=== PATIENT | male | born 1965 | race Caucasian/White ===

== ENCOUNTER 2023-02-09 09:09 | Outpatient (CLI) | payer OTHER, SELFPAY | END 2023-02-09 09:10 | disposition home or self-care (01) | LOC: NFLDREF 22:30 | PROVIDERS: PCP Family Medicine; Referring Provider Family Medicine; Visit Provider Emergency Medicine | DX: R53.83 Other fatigue (principal); Z13.1 Encounter for screening for diabetes mellitus; Z12.5 Encounter for screening for malignant neoplasm of prostate; Z13.6 Encounter for screening for cardiovascular disorders | CPT/HCPCS: 80048; 80061; 84153 ==

== ENCOUNTER 2023-03-03 13:21 | Outpatient (CLI) | payer OTHER, SELFPAY | END 2023-03-03 13:22 | disposition home or self-care (01) | LOC: LKVREF 13:22 | PROVIDERS: PCP Family Medicine; Visit Provider Emergency Medicine | DX: I10 Essential (primary) hypertension (principal); E78.5 Hyperlipidemia, unspecified; R53.83 Other fatigue | CPT/HCPCS: 80048 ==

== ENCOUNTER 2023-05-02 21:01 | Emergency (ER) | payer OTHER, SELFPAY ==
[2023-05-02 21:12] VITALS: BP 133/79; PULSE 59; RESP 14; TEMP 36.6; O2SAT 98
--- NOTE | 2023-05-02 21:57 | ED_ITS ---
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 His and daughter viewed the area today and were concerned, he has had no abdominal pain fact he says it does not really hurt at all, there is an abrasion over there. Denies any hematuria any problems with urination any numbness tingling weakness, or any centralized back discomfort at all. He is not on any anticoagulants. Related Data Home Medications Medication Instructions Recorded Confirmed latanoprost 0.005 % eye drops drp ophthalmic (eye) 01/03/23 04/13/23 cholecalciferol (vitamin D3) 250 250 mcg PO QDAY 02/03/23 05/02/23 mcg (10,000 unit) capsule multivitamin (Daily Multi-Vitamin 1 tab PO QAM 02/03/23 04/13/23 tablet) vitamin c gummies PO 02/03/23 04/13/23 Previous Rx's Medication Instructions Recorded fluocinolone 0.01 % topical 1 applic topical BID PRN 02/03/23 solution dermatitis #60 mL ketoconazole 2 % shampoo 1 applic topical 2XW #120 mL 02/03/23 triamcinolone acetonide 0.1 % 1 applic topical BID PRN eczema 02/03/23 topical cream #30 grams lisinopril 10 mg tablet 10 mg PO QDAY #90 tabs 03/03/23 ezetimibe 10 mg tablet (Zetia) 10 mg PO QDAY #90 tabs 03/23/23 clobetasol 0.05 % scalp solution 1 applic topical ONCE #50 mL 04/13/23 clobetasol 0.05 % topical cream 1 applic topical BID #30 grams 04/13/23 doxycycline monohydrate 100 mg 100 mg PO BID #60 tabs 04/13/23 tablet ketoconazole 2 % shampoo 1 applic topical 2XW #120 mL 04/13/23 Allergies Allergy/AdvReac Type Severity Reaction Status Date / Time [id number]-MxC Reductase Allergy Intermediate Myalgia Verified 05/02/23 21:16 Inhibitor Review of Systems Status of ROS: Reports: 6 or more systems reviewed and unremarkable except as noted in History and below PFSH PFS Medical History Eczema ?L30.9 - Dermatitis, unspecified (ICD-10) Psoriasis ?L40.9 - Psoriasis, unspecified (ICD-10) Seborrheic dermatitis of scalp ?L21.9 - Seborrheic dermatitis, unspecified (ICD-10) Hypertension ?I10 - Essential (primary) hypertension (ICD-10) Fatigue ?R53.83 - Other fatigue (ICD-10) Screening for prostate cancer ?Z12.5 - Encounter for screening for malignant neoplasm of prostate (ICD-10) Screening for hyperlipidemia ?Z13.220 - Encounter for screening for lipoid disorders (ICD-10) Screening for diabetes mellitus ?Z13.1 - Encounter for screening for diabetes mellitus (ICD-10) Screening for colon cancer ?Z12.11 - Encounter for screening for malignant neoplasm of colon (ICD-10) Tubular adenoma ?D36.9 - Benign neoplasm, unspecified site (ICD-10) Surgical History History of vasectomy ?Z98.52 - Vasectomy status (ICD-10) History of vasectomy ?Z98.52 - Vasectomy status (ICD-10) Family History Father Diabetes Mother Seizure disorder Social History Smoking Status: Never smoker Do you use any of these nicotine containing products: None Second hand tobacco smoke exposure: No How often do you have a drink containing alcohol: monthly or less How many standard drinks containing alcohol do you have on a typical day: 1 or 2 How often do you have six or more drinks on one occasion: Never AUDIT-C Alcohol total score: 1 Non-prescribed substance use: denies use Little interest or pleasure in doing things: not at all Feeling down, depressed, or hopeless: not at all Exam Narrative: Exam Narrative: On examination he is in no apparent distress, he is able to walk around the room no tenderness to palpation over his lumbar spine. Flexion extensions normal gai t is normal there is a fairly large bruising area noted of approximately 15 x 8 cm over the left flank region, there is a centralized area of abrasion, and some fullness in the lower part of the bruising area, abdominal exam reveals no tenderness no organomegaly bowel sounds are normal, I did take my ultrasound was able to see an area of hematoma there was no active bleeding within it, that measured 2 by 6 cm, Const: Vital Signs, click to edit/add: Vital Signs - 24 hr 05/02/23 21:12 Temperature 97.9 F Pulse Rate [Right Pulse Oximeter] 59 L Respiratory Rate 14 Blood Pressure [Ri ght Upper Arm] 133/79 Pulse Oximetry 98 Oxygen Delivery Me thod Room Air Documenting provider has reviewed patient's vital signs: yes Course Vital Signs Vital signs: Initial Vital Signs Temperature 97.9 F 05/02/23 21:12 Temperature Source Temporal Artery Scan 05/02/23 21:12 Pulse Rate 59 L 05/02/23 21:12 Pulse Rhythm Regular 05/02/23 21:12 Pulse Strength 3+ Normal 05/02/23 21:12 Respiratory Rate 14 05/02/23 21:12 Blood Pressure 133/79 05/02/23 21:12 Blood Pressure Mean 97 05/02/23 21:12 Blood Pressure Position Sitting 05/02/23 21:12 Pulse Oximetry 98 05/02/23 21:12 Oxygen Delivery Method Room Air 05/02/23 21:12 Vital Signs Temperature 97.9 F 05/02/23 21:12 Pulse Rate 59 L 05/02/23 21:12 Respiratory Rate 14 05/02/23 21:12 Blood Pressure 133/79 05/02/23 21:12 Pulse Oximetry 98 05/02/23 21:12 Oxygen Delivery Method Room Air 05/02/23 21:12 Temperature 97.9 F 05/02/23 21:12 Pulse Rate 59 L 05/02/23 21:12 Respiratory Rate 14 05/02/23 21:12 Blood Pressure 133/79 05/02/23 21:12 Pulse Oximetry 98 05/02/23 21:12 Oxygen Delivery Method Room Air 05/02/23 21:12 MDM - Wound/Laceration MDM Narrative Medical decision making narrative: I discussed with him that there is a small hematoma here, but he has no signs of other issue with his abdomen. A little worried that there may be infection track from the abrasion into the hematoma that would be very bad, we will put him on some antibiotics to try to avoid this he will put bacitracin on the area, and no swimming or other issues, I want into know the warning signs of we discussed these, for him to return Medical Records Attestation: I reviewed the patient's medical records. Discharge Plan Discharge Clinical Impression: Hematoma, Abrasion Patient Disposition: Home, Self-Care Condition: Stable Additional Instructions: Home rest use of bacitracin daily on the area, there is a small collection of blood into the skin, this will have to resolve in the bruising will change all sorts of different colors and probably track across her back and also crossed ear abdomen. No probably take a total time of almost 6 weeks to improve. I am a little worried about the laceration, maybe tracking some infection in there, so were going to put you on some antibiotics just to be safe. Please do not go swimming, told the laceration heals up, or hot tubbing. Showering is okay. Return here if fevers chills or sweats or increasing Prescriptions: No Action latanoprost 0.005 % drops ophthalmic (eye) multivitamin [Daily Multi-Vitamin] Tablet 1 tab PO QAM cholecalciferol (vitamin D3) 250 mcg (10,000 unit) capsule 250 mcg PO QDAY vitamin c gummies PO ketoconazole 2 % shampoo 1 applic topical 2XW Qty: 120 2RF Rx Instructions: use daily for two weeks and then twice weekly fluocinolone 0.01 % solution 1 applic topical BID PRN (Reason: dermatitis) Qty: 60 0RF triamcinolone acetonide 0.1 % cream 1 applic topical BID PRN (Reason: eczema) Qty: 30 1RF clobetasol 0.05 % solution 1 applic topical ONCE Qty: 50 0RF ketoconazole 2 % shampoo 1 applic topical 2XW Qty: 120 0RF Rx Instructions: Apply topically to scalp while showering 3 times weekly. clobetasol 0.05 % cream 1 applic topical BID Qty: 30 1RF Rx Instructions: Apply topically to affected area twice daily as needed, put away cream when skin has cleared doxycycline monohydrate 100 mg tablet 100 mg PO BID Qty: 60 9RF lisinopril 10 mg tablet 10 mg PO QDAY Qty: 90 3RF ezetimibe [Zetia] 10 mg tablet 10 mg PO QDAY Qty: 90 0RF Follow Up/Referrals: Praveen Cm MD [Primary Care Provider] - Stand Alone Forms: [employer] Info Instructions
[2023-05-02 22:06] VITALS: BP 125/74; PULSE 68; RESP 14; TEMP 36.6; O2SAT 98
[2023-05-02 22:10] VITALS: BP 125/74; PULSE 68; RESP 14; TEMP 36.6
== END 2023-05-02 22:10 | disposition home or self-care (01) ==
LOC: ED 22:08
PROVIDERS: Emergency Provider Family Medicine; PCP Emergency Medicine
DX: S30.811A Abrasion of abdominal wall, initial encounter (principal); W22.8XXA Striking against or struck by other objects, initial encounter; Y99.0 Civilian activity done for income or pay
CPT/HCPCS: 99282; 99283

== ENCOUNTER 2023-06-10 09:03 | Outpatient (CLI) | payer OTHER, SELFPAY ==
--- NOTE | 2023-06-10 08:43 | W.ANESCHARGE ---
Anesthesia Charges Start Date/Time Anesthesia Start Date: 06/10/23 Anesthesia Start Time: 10:00 Stop Date/Time Anesthesia Stop Date: 06/10/23 Anesthesia Stop Time: 10:30
--- NOTE | 2023-06-10 10:31 | W.ANESCHARGE ---
Anesthesia Charges Start Date/Time Anesthesia Start Date: 06/10/23 Anesthesia Start Time: 10:00 Stop Date/Time Anesthesia Stop Date: 06/10/23 Anesthesia Stop Time: 10:30
== END 2023-06-10 09:04 | disposition home or self-care (01) ==
LOC: OP CLINIC 09:04
PROVIDERS: PCP Emergency Medicine; Visit Provider Surgery
DX: Z12.11 Encounter for screening for malignant neoplasm of colon (principal); K63.5 Polyp of colon; Z86.010 Personal history of colon polyps
CPT/HCPCS: 45385; 811; 88305; J2704

== ENCOUNTER 2023-09-17 08:15 | Outpatient (CLI) | payer OTHER, SELFPAY | END 2023-09-17 08:16 | disposition home or self-care (01) | LOC: NFLDREF 09-20 07:50 | PROVIDERS: PCP Emergency Medicine; Referring Provider Emergency Medicine; Visit Provider Emergency Medicine | DX: E78.5 Hyperlipidemia, unspecified (principal); R53.83 Other fatigue; I10 Essential (primary) hypertension; Z13.1 Encounter for screening for diabetes mellitus; Z13.6 Encounter for screening for cardiovascular disorders; Z12.5 Encounter for screening for malignant neoplasm of prostate | CPT/HCPCS: 80061; 84450; 84460 ==

== ENCOUNTER 2024-05-30 08:08 | Outpatient (CLI) | payer OTHER, SELFPAY ==
--- OUTSIDE RECORDS SUMMARY | 2024-06-01 09:06 | XMS_ITS | Clinical Summary ---
Author Organization [facility] Address [place], [place] [address] Care Team Providers Care Program Strategist Name Role Phone Areli Wood NP Primary Care Provider [phone] Social History Tobacco Use Types Packs/Day Years Used Date Smoking Tobacco: Never Assessed Sex and Gender Information Value Date Recorded Sex Assigned at Not on file Gender Identity Not on file Sexual Orientation Not on file Plan of Treatment Not on file Care Teams Program Strategist Relationship Specialty Start Date End Date Areli Wood NP [id number], [place] [address] PCP - General Nurse Practitioner 01/10/18
== END 2024-05-30 08:09 | disposition home or self-care (01) ==
LOC: NFLDREF 06-01 09:04
PROVIDERS: PCP Emergency Medicine; Referring Provider Emergency Medicine; Visit Provider Emergency Medicine
DX: I10 Essential (primary) hypertension (principal); E78.2 Mixed hyperlipidemia; Z13.1 Encounter for screening for diabetes mellitus; Z12.5 Encounter for screening for malignant neoplasm of prostate
CPT/HCPCS: 80053; 80061; 83036; G0103

== ENCOUNTER 2024-06-28 13:00 | Outpatient (RCR) | payer OTHER, SELFPAY | END 2024-10-17 07:18 | disposition home or self-care (01) | PROVIDERS: PCP Emergency Medicine; Visit Provider Family Medicine | DX: M25.511 Pain in right shoulder (principal); M25.512 Pain in left shoulder; R29.898 Other symptoms and signs involving the musculoskeletal system; Z51.89 Encounter for other specified aftercare | CPT/HCPCS: 97110; 97161 ==

== ENCOUNTER 2024-11-21 08:24 | Outpatient (CLI) | payer OTHER, SELFPAY | END 2024-11-21 08:25 | disposition home or self-care (01) | LOC: NFLDREF 11-22 01:33 | PROVIDERS: PCP Emergency Medicine; Referring Provider Emergency Medicine; Visit Provider Emergency Medicine | DX: E78.2 Mixed hyperlipidemia (principal) | CPT/HCPCS: 80061 ==

== ENCOUNTER 2025-07-20 09:03 | Outpatient (CLI) | payer OTHER, SELFPAY | END 2025-07-20 09:04 | disposition home or self-care (01) | PROVIDERS: PCP Physician Assistant Medical; Visit Provider Physician Assistant Medical | DX: Z00.00 Encounter for general adult medical examination without abnormal findings (principal) | CPT/HCPCS: 80053; 80061; 82306; 84443; G0103 ==

== ENCOUNTER 2025-08-02 08:16 | Outpatient (CLI) | payer OTHER, SELFPAY ==
--- NOTE | 2025-08-02 09:00 | CRLHL7_ITS ---
For Patients: As a result of the Century Cures Act, medical imaging exams and procedure reports are released immediately into your electronic medical record. You may view this report before your referring provider. If you have questions, please contact your health care provider. Indication: Abnormal findings on diagnostic imaging Technique: Noncontrast CT chest Please note that all CT scans at this facility use dose modulation, iterative reconstruction, and/or weight-based dosing when appropriate to reduce radiation dose to as low as reasonably achievable. Comparison: Chest x-ray 07/13/2025 Findings: Calcified granuloma within the left lower lobe incidentally noted. Visualized thyroid is unremarkable. No adenopathy. Upper abdomen is within normal limits. No fracture. No infiltrate or edema. No effusion or pneumothorax. Impression: No suspicious findings are present. Please note that all CT scans at this facility use dose modulation, iterative reconstruction, and/or weight-based dosing when appropriate to reduce radiation dose to as low as reasonably achievable. Dictated by Faustino Calabrese MD @ 08/02/2025 12:03:18 PM (Electronically Signed)
--- NOTE | 2025-08-02 10:15 | CRLHL7_ITS ---
For Patients: As a result of the Century Cures Act, medical imaging exams and procedure reports are released immediately into your electronic medical record. You may view this report before your referring provider. If you have questions, please contact your health care provider. EXAM: MRI OF THE LEFTRIGHT SHOULDER, WITHOUT CONTRAST CLINICAL INDICATION: Shoulder pain. PRIOR SURGERY: None reported. COMPARISON PLAIN FILMS: 20 July 2025. COMPARISON CROSS-SECTIONAL IMAGING STUDIES: None available at time of interpretation. TECHNICAL: Axial, sagittal oblique and coronal oblique T1, PD, PD FS and T2-weighted images. FINDINGS: GLENOHUMERAL JOINT: Effusion/Cyst: Upper normal physiologic quantity of joint fluid. No synovitis. No paralabral or periarticular cyst or ganglion. Humeral Head Articular Cartilage: No osteochondral lesion or abnormality. Glenoid Articular Cartilage: No osteochondral lesion or abnormality. Loose Bodies: No appreciable loose bodies. Capsule: No convincing evidence of adhesive capsulitis or capsular injury. OSSEOUS STRUCTURES: No fracture, marrow edema or marrow replacement process. CORACOACROMIAL ARCH: Acromial Morphology: Type 2 acromial morphology. No abnormal lateral or anterior downward sloping of the acromion. No os acromiale. Shallow subacromial spur at the insertion of the coracoacromial ligament. Lateral acromial thickness is 7 mm. Acromiohumeral Interval: The acromiohumeral interval is adequately patent. At its narrowest, the interval measures 7 mm. No abnormal thickening of the coracoacromial ligament. Coracohumeral Interval: The coracohumeral interval is normal. At its narrowest, the coracohumeral interval measures 10 mm. Coracoid index is 11 mm. ACROMIOCLAVICULAR JOINT REGION: AC Joint: Small effusion. Edematous capsular hypertrophy. Minor patchy subchondral edema and small cysts. No significant osteophyte. No joint space widening. Ligaments: The coracoclavicular ligaments are intact. BURSAE: Subacromial-Subdeltoid: Fluid under the acromion and proximal anterior deltoid. Subcoracoid: No abnormal bursal edema, thickening or bursal fluid. ROTATOR CUFF TENDONS AND MUSCLES AND DELTOID: Supraspinatus: Bursal and articular degenerative marginal tearing significantly thins the distal tendon to full-thickness loss anterior distal tendon and footplate. Greatest width in the sagittal plane about 9 mm in greatest width in the coronal plane of about 8-9 mm. No edema or atrophy in the muscle. Some grade 1 volume loss with increased fat around the muscle in the supraspinatus fossa. Infraspinatus: Hazy tendinosis in the substance and articular margin expands the distal tendon. Small articular low-grade tear anterior distal tendon involves less than 50 percent of expected with anterior-posterior distance of about 4-5 mm. No atrophy or edema in the muscle. Teres Minor: No tendinosis, tendon tearing, muscle atrophy or muscle edema. Subscapularis: Hazy tendinosis at the margins of the intact tendon. Mild expansion. No atrophy or edema in the muscle. Deltoid: No muscle atrophy or edema. BICEPS TENDON, LONG HEAD: The long head of the biceps tendon is appropriately positioned within the bicipital groove without tendon subluxation or dislocation. The biceps moshe mechanism is intact. The biceps anchor appears grossly intact. There is no significant tendinosis or tendon tearing. GLENOID LABRUM: Within the limitations of non-arthrographic technique, the superior labrum and biceps-labral complex are intact. The anteroinferior labrum is intact without Bankart or Bankart-variant labral tear. The remainder of the labrum is similarly intact. OTHER FINDINGS: There is no abnormality within the suprascapular or spinoglenoid notches nor within the quadrilateral space. No axillary adenopathy or mass. IMPRESSION: 1. Degenerative full-thickness tear supraspinatus. 2. Prominent tendinosis infraspinatus. Shallow small articular tear distal tendon. 3. [id number] marginal tendinosis subscapularis. 4. Mild hypertrophic arthrosis AC joint. 5. Mild subacromial/subdeltoid bursitis. Dictated by Sang Mustafa MD @ 08/03/2025 1:27:27 PM (Electronically Signed)
== END 2025-08-02 08:17 | disposition home or self-care (01) ==
LOC: CT 08:18
PROVIDERS: PCP Physician Assistant Medical; Visit Provider Physician Assistant Medical
DX: R93.89 Abnormal findings on diagnostic imaging of other specified body structures (principal); M25.511 Pain in right shoulder; M75.101 Unspecified rotator cuff tear or rupture of right shoulder, not specified as traumatic; M19.011 Primary osteoarthritis, right shoulder; M75.51 Bursitis of right shoulder
CPT/HCPCS: 71250; 73221

== ENCOUNTER 2025-09-07 06:32 | Day surgery (SDC) | payer OTHER, SELFPAY ==
[2025-09-07] VITALS (19 sets, daily range): BP systolic 114–137; BP diastolic 66–83; PULSE 51–85; RESP 18–24; TEMP 36.3–36.8; O2SAT 93–97
[2025-09-07] MEDS: LACTATED RINGERS 1000 ML 1,000 ML 100 ML IV ×2 (06:40→09:51)
[2025-09-07] MEDS: SODIUM CHLORIDE 0.9 % (FLUSH) 10 ML SYRINGE IVF (07:34)
[2025-09-07] MEDS: MIDAZOLAM HCL 1 MG/ML inj IVP (07:50)
--- NOTE | 2025-09-07 07:56 | SUR.PREOP ---
TIME?OUT:?0750 PT/RN/MDA?VERIFICATION?OF?SURGICAL?SITE,?PROCEDURE,?AND?CONSENT OBTAINED?PRIOR?TO?INVASIVE?PROCEDURE.right shoulder R Veronica Rush CRNA PT and consent
--- NOTE | 2025-09-07 08:36 | W.PM.H&PU ---
History & Physical Update History & Physical Update H&P Reviewed and patient assessed: No changes noted
--- NOTE | 2025-09-07 08:37 | PM.ORPRC ---
Procedure Note Date of procedure: 09/07/25 Procedure: PREOPERATIVE DIAGNOSES: 1. Right shoulder rotator cuff tear. POSTOPERATIVE DIAGNOSES: 1. Right shoulder rotator cuff tear - supraspinatus 2. Right shoulder partial-thickness tear long head of biceps tendon 3. Right shoulder degenerative tearing superior anterior labrum 4. Right shoulder subacromial bursitis NAME OF OPERATION: 1. Right shoulder arthroscopic rotator cuff repair. 2. Right shoulder arthroscopic limited debridement (anterior labrum, superior labrum, glenoid, long head of biceps tendon, and subacromial bursa) SURGEON: Roderick Ken MD SUPERVISOR PROCESS TESTING: Linda Zhang P.A.-C.. An community program assistant was critical for this case to aid in patient positioning, suture manipulation, arm positioning, instrument positioning, and closure. ANESTHESIA: General plus preoperative supraclavicular block. IMPLANTS: Arthrex 2.6 mm knotless FiberTak anchors x2 and 4.75 mm BioComposite SwiveLock anchors x2 COMPLICATIONS: None ESTIMATED BLOOD LOSS: 5 mL INDICATIONS: The patient is a pleasant, 60-year-old male who has experienced chronic right shoulder pain that has been increasing in recent time. Physical exam and imaging were consistent with a rotator cuff tear. Given these findings, as well as the weakness and pain, and failure to improve with nonoperative management, recommendation was made for surgery. FINDINGS: Exam under anesthesia revealed stable shoulder with full range of motion. The diagnostic arthroscopy revealed small amount of grade 3 chondromalacia central glenoid. Normal appearing cartilage of the humeral head. Degenerative fraying of the anterior and superior labrum. Partial-thickness tearing of the intra-articular portion of the biceps tendon which involved approximately 20% of the tendon thickness. Interstitial tearing upper border subscapularis with intact subscapularis attachment. Small full-thickness anterior supraspinatus tear with adjacent high-grade partial-thickness supraspinatus tearing. After debridement supraspinatus tear measured 1.5 cm in anterior posterior direction and was minimally retracted. No loose bodies were identified within the pouch or subscapularis recess. PROCEDURE: Following a thorough discussion of risks, benefits, and alternatives, consent was obtained and the operative shoulder was marked. A supraclavicular nerve block was performed by anesthesia staff in preop holding. The patient was brought to the operating room and placed supine on the operating table. Induction of anesthesia was completed, and patient was given IV Ancef preoperatively for prophylaxis. Patient was placed into the beach chair position. Head was placed in padded wharf tender head in neutral alignment, and all bony prominences were well padded. The operative shoulder and upper extremity were prepped and draped in the appropriate sterile fashion using ChloraPrep. A surgical time-out was performed confirming patient identity, surgical site, surgical procedure. Anterior, lateral, posterior portal sites were injected with 0.25% Marcaine with epinephrine. The glenohumeral joint was injected with 40 mL of normal saline using an 18g spinal needle from a posterior approach. Posterior portal was established. Anterior portal was established after localization with a spinal needle and a 7.0 mm cannula was placed here. Diagnostic arthroscopy was then performed with findings as noted above. Attention was 1st directed to debridement within the glenohumeral joint. There was degenerative fraying of the anterior and superior labrum, which was debrided with the motorized shaver. After debridement, labrum was probed and confirmed to be stable. There was partial-thickness tearing of the intra-articular portion of the biceps tendon, which involved approximately 20% of the tendon thickness. Frayed aspects of the tendon were debrided with motor shaver. The biceps tendon was well seated with in the bicipital groove and did not sublux out of the groove. There was interstitial tearing of the upper border of the subscapularis, but subscapularis attachment site was intact with no further treatment was deemed necessary. Prior to moving the camera out of the glenohumeral joint, the supraspinatus tear was marked with a PDS suture. Camera was then moved to the subacromial space. A lateral portal was established after localization with spinal needle. A passport cannula was placed into the lateral portal. Subacromial bursectomy was performed using combination of motorized shaver and radiofrequency ablator to allow for visualization of the rotator cuff. The rotator cuff was inspected a PDS marking stitch was removed. A motorized shaver was then used to debride the tendon edges back to healthy rotator cuff tissue. After debridement, tear measured approximately 1.5 cm in the anterior-posterior direction was minimally retracted and easily mobilized to its footprint. The supraspinatus footprint was then debrided of soft tissue and lightly decorticated with the motorized shaver. Two small stab incisions were placed off the lateral aspect of the acromion for placement of knotless 2.6 mm fiber tack anchors. These anchors were placed in the anterior medial and posterior medial aspects of the supraspinatus footprint. A passing suture was then used to shuttle sutures through the rotator cuff lateral to the musculotendinous junction. Knotless sutures were then passed and tensioned to complete the medial row repair. Lateral row repair was then completed using two 4.75 mm BioComposite SwiveLock anchors. Each anchor contained 1 FiberTape from the previously placed medial and lateral row anchors. Sutures were tensioned and anchors were secured into position. Remnant sutures were then cut and removed. The shoulder was placed through range of motion and found to be stable. The rotator cuff was re-probed and found to be stable. Surgical instruments and cannulas were removed. Excess fluid was drained for the subacromial space. Portal sites were then closed with 3-0 nylon simple interrupted sutures. Sterile dressings were applied followed by the application of an abduction sling. Patient was then rotated into the supine position, woken from anesthesia, and transferred to the PACU in stable condition. PLAN: 1. Discharge to home day of surgery. 2. Ice for pain and swelling. 3. Tylenol and oxycodone as needed for pain control. 4. Abduction sling at all times except for ROM and showering. -Remove sling several times daily for pendulum exercises, as well as finger, wrist, and elbow range of motion. 5. Follow-up in orthopedic clinic in 10-14 days for wound check and suture removal. 6. Will initiate formal physical therapy 2 weeks postoperatively per the standard rotator cuff repair protocol.
[2025-09-07] MEDS: EPINEPHrine 1 MG in SODIUM CHLORIDE IRRIG SOLUTION 3,000 ML 9003 MG IRRIGATION ×4 (09:09→10:15)
[2025-09-07] MEDS: LIDOCAINE 1%-EPI 1:100,000 20 ML INFILTRATI (10:00)
--- NOTE | 2025-09-07 10:27 | P.NB_ITS ---
Nerve Block Nerve Block Time Seen by Provider: 08:30 Date Seen: 09/07/25 Type of block requested by surgeon for post-operative analgesia: supraclavicular Side: right Time out performed: Yes Verification of patient name: Yes Verification of date of : Yes Site marking: site marked Name of person performing procedure: mantyl Continuous monitoring Was continuous monitoring of O2 sat, B/P, cardiac monitor technician, recorded every 15 minutes?: Yes Procedure Checklist: sterile prep and needles Ultrasound guided. Images saved: Yes Medications given in 5ml increments after negative aspiration: Ropivicaine %: 0.5 mL: 20 Patient tolerated procedure well: Yes Block Charges Block Charge (with Pro Fee): Brachial Plexus Use of Ultrasound Machine for Block: Yes- US Guidance/pain block
--- NOTE | 2025-09-07 10:53 | P.ANES_ITS ---
Anesthesia Charges Start Date/Time Anesthesia Start Date: 09/07/25 Anesthesia Start Time: 08:32 Stop Date/Time Anesthesia Stop Date: 09/07/25 Anesthesia Stop Time: 10:53 Coding CPT Codes CPT Codes: ANESTH SURGERY OF SHOULDER - 83995 ([id number]) P2 - PATIENT W/MILD SYST DISEASE, QK - FREIGHT COORDINATOR 2-4 CNCRNT ANES PROC, QX - LIQUOR CLERK SVC W/ MD MED DIRECTION
--- NOTE | 2025-09-07 10:53 | W.ANESCHARGE ---
Anesthesia Charges Start Date/Time Anesthesia Start Date: 09/07/25 Anesthesia Start Time: 08:32 Stop Date/Time Anesthesia Stop Date: 09/07/25 Anesthesia Stop Time: 10:53 Coding CPT Codes CPT Codes: ANESTH SURGERY OF SHOULDER - 09240 ([id number]) P2 - PATIENT W/MILD SYST DISEASE, QK - FACILITY PLANNER 2-4 CNCRNT ANES PROC, QX - BUSINESS INVESTOR SVC W/ MD MED DIRECTION
== END 2025-09-07 13:06 | disposition home or self-care (01) ==
LOC: OR 06:32
PROVIDERS: PCP Physician Assistant Medical; Visit Provider Orthopaedic Surgery
PROC: (CPT 29805; principal; 2025-09-07 08:00)
DX: M75.121 Complete rotator cuff tear or rupture of right shoulder, not specified as traumatic (principal); S43.431A Superior glenoid labrum lesion of right shoulder, initial encounter; S46.111A Strain of muscle, fascia and tendon of long head of biceps, right arm, initial encounter; M75.51 Bursitis of right shoulder; G89.18 Other acute postprocedural pain; G47.33 Obstructive sleep apnea (adult) (pediatric); I10 Essential (primary) hypertension; E78.2 Mixed hyperlipidemia
CPT/HCPCS: 29827; 29822; 01630; 64415; 76942; C1713; J0169; J0690; J2250; J2371; J2405; J2704; J2710; J2795; J3010; J7120; L3670